=== PATIENT | female | born 1950 | race Caucasian/White ===

== ENCOUNTER → 2019-09-26 | Outpatient (CLI) | payer MEDICARE ==
--- NOTE | 2019-09-27 08:14 | USB ---
Reason for exam: clinical finding. Physical Findings: Nurse did not find any significant physical abnormalities on exam. US Breast RT Right complete breast ultrasound includes all four quadrants, the retroareolar region and axilla. Finding demonstrates a 0.3 x 0.2 x 0.3cm cystic lesion at 12 o'clock and ductal ectasia at the posterior nipple. These results were verbally communicated with the patient and result sheet given to the patient on 09/26/19. ASSESSMENT: Benign, BI-RAD 2 RECOMMENDATION: Routine screening mammogram of both breasts. Back on schedule. Manage patient on a clinical basis.
== END | disposition home or self-care (01) ==
LOC: RADUSWWP 14:45
PROVIDERS: ATTEND Family Medicine
DX: N63.0 Unspecified lump in unspecified breast (principal)

== ENCOUNTER → 2020-12-05 | Outpatient (CLI) | payer MEDICARE ==
--- NOTE | 2020-12-10 11:56 | MM ---
Reason for exam: screening (asymptomatic). Last mammogram was performed 1 year and 4 months ago. History: Patient is postmenopausal. Physical Findings: A clinical breast exam by your physician is recommended on an annual basis and results should be correlated with mammographic findings. MG 3D Screening Mammo W/Cad Bilateral CC and MLO view(s) were taken. Prior study comparison: September 26, 2019, right breast US breast RT. July 26, 2019, mammogram, performed at [facility]. The breast tissue is heterogeneously dense. This may lower the sensitivity of mammography. No significant changes when compared with prior studies. ASSESSMENT: Benign, BI-RAD 2 RECOMMENDATION: Routine screening mammogram of both breasts in 1 year.
== END | disposition home or self-care (01) ==
LOC: RADMAMWWP 15:58
PROVIDERS: ATTEND Family Medicine
DX: Z12.31 Encounter for screening mammogram for malignant neoplasm of breast (principal)
CPT/HCPCS: 77063; 77067

== ENCOUNTER → 2021-03-18 | Outpatient (CLI) | payer MEDICARE ==
--- NOTE | 2021-03-18 09:03 | BD ---
EXAMINATION TYPE: Axial Bone Density DATE OF EXAM: 03/18/2021 COMPARISON: NONE CLINICAL HISTORY: Postmenopausal female Height: 5 FT 3 1/2 IN Weight: 129 FRAX RISK QUESTIONS: Alcohol (3 or more units per day): NO Family History (Parent hip fracture): NO Glucocorticoids (More than 3mos): NO (Ex: prednisone, prednisolone, methylprednisolone, dexamethasone, and hydrocortisone). History of Fracture in Adulthood: NO Secondary Osteoporosis: 1. Type 1 Diabetes: NO 2. Hyperthyroidism: NO 3. Menopause before 45: NO 4. Malnutrition: NO 5. Chronic liver disease: NO Rheumatoid Arthritis: NO Current Tobacco Use: NO RISK FACTORS HISTORY OF: Surgery to Spine/Hip(right/left)/Wrist (right/left): NO Family History of Osteoporosis: NO Active: YES Diet low in dairy products/other sources of calcium: NO Postmenopausal woman: AGE 50-53 Take estrogen and/or progesterone medications: NONE Lost more than 2 inches in height since high school: NO MEDICATIONS: Thyroid Medications: YES Which medication: SYNTHROID How Lon YEARS Additional Medications: SYNTHROID, PREVA STATIN, ACTONEL TAKEN FOR 11 YEARS , Additional History: LAST BONE DENSITY THREE YEARS AGO [facility] EXAM MEASUREMENTS: Bone mineral densitometry was performed using the [employer] System. Bone mineral density as measured about the Lumbar spine is: ----- L1-L4(G/cm2): 0.985 T Score Values are as follows: ----- L2: -1.5 ----- L3: -1.6 ----- L4: -2.2 ----- L1-L4: -1.6 PREV DONE THREE YEARS [facility] Bone mineral density about the R hip (g/cm2): 0.741 Bone mineral density about the L hip (g/cm2): 0.793 T Score values are as follows: -----R Neck: -2.1 -----L Neck: -1.8 -----R Total: -1.3 -----L Total: -1.0 PREV DONE THREE AGO [facility] IMPRESSION: Osteopenia (T Score between -2.5 and -1). There is slightly increased risk of fracture and the patient may be considered for treatment. Re-Screen 2-5 years. NOTE: T-SCORE=SD OF THE YOUNG ADULT MEAN.
== END | disposition home or self-care (01) ==
LOC: RADBDWWP 07:51
PROVIDERS: ATTEND Family Medicine
DX: Z78.0 Asymptomatic menopausal state (principal); M85.80 Other specified disorders of bone density and structure, unspecified site
CPT/HCPCS: 77080

== ENCOUNTER 2022-05-20 07:21 | Day surgery (SDC) | payer MEDICARE ==
[2022-05-18 15:45] VITALS: BMI 22.6
[~2022-05-20 07:21] MED LIST: LACTATED RINGERS 1,000 ML IV SCH; LIDOCAINE 1% (10MG/ML) FOR IV START INTRADERMA PRN
[2022-05-20 08:05] VITALS: TEMP 98.6
[2022-05-20] MEDS ORDERED: LIDOCAINE 2% INJ 20 MG/ML (2 ML VIAL) ONE (08:35)
[2022-05-20] MEDS ORDERED: PROPOFOL 10 MG/ML 20 ML VIAL IV ONE (08:35)
--- NOTE | 2022-05-20 08:52 | P.PCN ---
Date of Procedure: 05/20/22 Procedure(s) Performed: BRIEF HISTORY: Patient is a 71-year-old pleasant white female scheduled for an elective colonoscopy as a part of screening for colon cancer and family history of colon cancer diagnosed in her father at age 88. PROCEDURE PERFORMED: Colonoscopy. PREOPERATIVE DIAGNOSIS: Screening for colon cancer and family history of colon cancer. IV sedation per Anesthesia. PROCEDURE: After informed consent was obtained, the patient, was brought into the endoscopy unit. IV sedation was administered by Anesthesia under continuous monitoring. Digital rectal examination was normal. Initially the Olympus CF-160 flexible video colonoscope was then inserted in the rectum, gradually advanced into the cecum without any difficulty. Careful examination was performed as the scope was gradually being withdrawn. Ileocecal valve and the appendiceal orifice were visualized and appeared normal. Prep was excellent. Mucosa of the cecum, ascending colon, transverse colon, descending colon, sigmoid colon, and rectum appeared normal. Scattered sigmoid diverticulosis. Retroflexion was performed in the rectum and no lesions were seen. The patient tolerated the procedure well. IMPRESSION: Normal-appearing colon from rectum to cecum with no evidence of colorectal neoplasia Scattered sigmoid diverticulosis RECOMMENDATIONS: Findings of this examination were discussed with the patient as well as a family. She was advised to have a repeat colonoscopy in 55 years from now because of the family history of colon cancer..
[2022-05-20 09:13] VITALS: BP 111/65; PULSE 60; RESP 16
== END 2022-05-20 09:57 | disposition home or self-care (01) ==
LOC: ORWHC2ENDO 07:21
PROVIDERS: ATTEND Internal Medicine Gastroenterology
DX: Z12.11 Encounter for screening for malignant neoplasm of colon (principal); K57.30 Diverticulosis of large intestine without perforation or abscess without bleeding; Z80.0 Family history of malignant neoplasm of digestive organs; E78.5 Hyperlipidemia, unspecified; E07.9 Disorder of thyroid, unspecified; Z79.890 Hormone replacement therapy; Z79.899 Other long term (current) drug therapy; Z88.0 Allergy status to penicillin
CPT/HCPCS: J2704; J2001; G0105

== ENCOUNTER → 2023-01-25 | Outpatient (CLI) | payer MEDICARE ==
--- NOTE | 2023-01-26 08:15 | MM ---
Reason for Exam: Screening (asymptomatic). Last mammogram was performed 1 year(s) and 1 month(s) ago. Patient History: Menarche at age 10. First Full-Term at age 27. Postmenopausal. Risk Values: Josselin 5 year model risk: 2.0%. NCI Lifetime model risk: 4.5%. Prior Study Comparison: 07/26/2019 Screening Mammogram, [facility]. 12/05/2020 Bilateral Screening Mammogram, [facility]. 01/06/2022 Bilateral Screening Mammogram, [facility]. Tissue Density: The breast tissue is heterogeneously dense. This may lower the sensitivity of mammography. Findings: Analyzed By CAD. There is no suspicious group of microcalcifications or new suspicious mass in either breast. Stable benign calcifications within both breasts. Overall Assessment: Benign, BI-RAD 2 Management: Screening Mammogram of both breasts in 1 year. A clinical breast exam by your physician is recommended on an annual basis and results should be correlated with mammographic findings. Electronically signed and approved by: Noé Azar D.O.
== END | disposition home or self-care (01) ==
LOC: RADMAMWWP 11:50
PROVIDERS: ATTEND Family Medicine
DX: Z12.31 Encounter for screening mammogram for malignant neoplasm of breast (principal); Z78.0 Asymptomatic menopausal state
CPT/HCPCS: 77063; 77067

== ENCOUNTER → 2023-03-24 | Outpatient (CLI) | payer MEDICARE ==
--- NOTE | 2023-03-24 18:59 | BD ---
EXAMINATION TYPE: Axial Bone Density DATE OF EXAM: 03/24/2023 CLINICAL HISTORY: 72 years old Female. ICD-10 CODE: Z78.0 Asymptomatic menopausal state Height: 5 ft 2 in Weight: 130 FRAX RISK QUESTIONS: Alcohol (3 or more units per day): no Family History (Parent hip fracture): no Glucocorticoids (More than 3mos): no (Ex: prednisone, prednisolone, methylprednisolone, dexamethasone, and hydrocortisone). History of Fracture in Adulthood: no Secondary Osteoporosis: 1. Type 1 Diabetes: no 2. Hyperthyroidism: no 3. Menopause before 45: no 4. Malnutrition: no 5. Chronic liver disease: no Rheumatoid Arthritis: no Current Tobacco Use: no RISK FACTORS HISTORY OF: Surgery to Spine/Hip(right/left)/Wrist (right/left): no Family History of Osteoporosis: no Active: yes Diet low in dairy products/other sources of calcium: no Postmenopausal woman: yes Take estrogen and/or progesterone medications: yes Lost more than 2 inches in height since high school: yes Frequent falls: no Poor Health: good Hyperparathyroidism: no Adrenal Insufficiency: no MEDICATIONS: Thyroid Medications: yes Which medication: synthroid How Lon-4 years Additional Medications: synthroid,prevastatan, fosamax, Additional History: been on fosamax since 2009 EXAM MEASUREMENTS: Bone mineral densitometry was performed using the [employer] System. Bone mineral density as measured about the Lumbar spine is: ----- L1-L4(G/cm2): 1.008 T Score Values are as follows: ----- L1: -1.1 ----- L2: -1.4 ----- L3: -1.7 ----- L4: -1.5 ----- L1-L4: -1.4 Z Score Values are as follows: ----- L1: 0.8 ----- L2: 0.5 ----- L3: 0.2 ----- L4: 0.4 ----- L1-L4: 0.5 Bone mineral density has: increased 2.3 % since study of: 2020 Bone mineral density about the R hip (g/cm2): 0.733 Bone mineral density about the L hip (g/cm2): 0.794 T Score values are as follows: -----R Neck: -2.2 -----L Neck: -1.8 -----R Total: -1.3 -----L Total: -0.8 Z Score values are as follows: -----R Neck: -0.2 -----L Neck: 0.3 -----R Total: 0.6 -----L Total: 1.0 Bone mineral density has: increased 1.4 % since study of: 2020 FRAX%s: The graph provided illustrates a 14.1% chance for a major osteoporotic fx and a 3.9% chance f or the hips probability for fx in 10 years time. IMPRESSION: Osteopenia (T Score between -2.5 and -1). There is slightly increased risk of fracture and the patient may be considered for treatment. Re-Screen 2-5 years. NOTE: T-SCORE=SD OF THE YOUNG ADULT MEAN.
== END | disposition home or self-care (01) ==
LOC: RADBDWWP 14:17
PROVIDERS: ATTEND Family Medicine
DX: M85.89 Other specified disorders of bone density and structure, multiple sites (principal); Z78.0 Asymptomatic menopausal state
CPT/HCPCS: 77080

== ENCOUNTER → 2024-03-27 | Outpatient (CLI) | payer MEDICARE ==
--- NOTE | 2024-03-28 16:15 | MM ---
Reason for Exam: Screening (asymptomatic). Last mammogram was performed 1 year(s) and 2 month(s) ago. Patient History: Menarche at age 10. First Full-Term at age 27. Postmenopausal. Risk Values: Josselin 5 year model risk: 2.0%. NCI Lifetime model risk: 4.2%. Prior Study Comparison: 12/05/2020 Bilateral Screening Mammogram, [facility]. 01/06/2022 Bilateral Screening Mammogram, [facility]. 01/25/2023 Bilateral MG 3D screening mammo w/cad, [facility]. Tissue Density: The breasts are heterogeneously dense, which may obscure small masses. Findings: Analyzed By CAD. There is no suspicious group of microcalcifications or new suspicious mass in either breast. Overall Assessment: Negative, BI-RAD 1 Management: Screening Mammogram of both breasts in 1 year. . Patient should continue monthly self-breast exams. A clinical breast exam by your physician is recommended on an annual basis. This exam should not preclude additional follow-up of suspicious palpable abnormalities. Note on Josselin scores and lifetime risk: 1. A Josselin score greater than 3% is considered moderate risk. If this is the case, consider specialist referral to assess eligibility for a risk reducing agent. 2. If overall lifetime risk for the development of breast cancer is 20% or higher, the patient may qualify for future screening with alternating mammogram and breast MRI. Electronically signed and approved by: James Champion M.D. Radiologist
== END | disposition home or self-care (01) ==
LOC: RADMAMWWP 12:44
PROVIDERS: ATTEND Family Medicine
DX: Z12.31 Encounter for screening mammogram for malignant neoplasm of breast (principal); Z78.0 Asymptomatic menopausal state
CPT/HCPCS: 77063; 77067

== ENCOUNTER 2024-07-10 09:23 | Day surgery (SDC) | payer MEDICARE ==
[~2024-07-10 09:23] MED LIST changes: -LACTATED RINGERS 1,000 ML IV SCH; -LIDOCAINE 1% (10MG/ML) FOR IV START INTRADERMA PRN; +ONDANSETRON 4 MG/2 ML VIAL IVP ONE
[2024-07-10] MEDS: HEPARIN SODIUM,PORCINE 5,000 UNIT/ML 1 ML VIAL SQ PRN (10:12)
[2024-07-10] MEDS: ACETAMINOPHEN TAB 500 MG TAB PO PRN (10:12)
[2024-07-10] MEDS: ONDANSETRON 4 MG/2 ML VIAL IVP ONE (10:20)
[2024-07-10] MEDS: DEXAMETHASONE SOD PHOSPHATE 4 MG/ML 1 ML VIAL IVP STA (10:22)
--- NOTE | 2024-07-10 10:22 | P.GSHP ---
History of Present Illness H&P Date: 07/10/24 Chief Complaint: Right inguinal hernia 73-year-old female last seen in January. Patient with enlarging right inguinal hernia. Sore at times. No nausea or vomiting. No change in bowel habits. Past Medical History Past Medical History: Deep Vein Thrombosis (DVT), Hearing Disorder / Deafness, Hyperlipidemia, Thyroid Disorder Additional Past Medical History / Comment(s): HX OF DVT WITH . GANGLION CYST RIGHT INDEX FINGER. Hard of hearing. Low bone density. Varicose veins. hypothyroidism History of Any Multi-Drug Resistant Organisms: None Reported Past Surgical History: Tonsillectomy Additional Past Surgical History / Comment(s): COLONOSCOPY, ASPIRATION BREAST CYSTS (NO ANESTHESIA). Past Anesthesia/Blood Transfusion Reactions: No Reported Reaction Smoking Status: Never smoker - Past Family History Father Family Medical History: Cancer Additional Family Medical History / Comment(s): COLON CANCER. Medications and Allergies Home Medications Medication Instructions Recorded Confirmed Type Calcium Carbonate [Calcium] 600 mg PO DAILY 01/16/19 07/10/24 History Levothyroxine Sodium [Synthroid] 50 mcg PO HS 01/16/19 07/10/24 History Multivit with Calcium,Iron,Min 1 each PO DAILY 01/16/19 07/10/24 History [Women's Multivitamin] [place]-3 Fatty Acids/Fish Oil [Fish 1 each PO DAILY 01/16/19 07/10/24 History Oil 1,000 mg Softgel] Pravastatin Sodium [Pravachol] 40 mg PO HS 01/16/19 07/10/24 History Sf 5,000plus 1.1% Dental Cream 1 dose PO DAILY 01/16/19 07/10/24 History Ubidecarenone [Co Q-10] 200 mg PO DAILY 01/16/19 07/10/24 History Alendronate Sodium 70 mg PO TH 05/18/22 07/10/24 History Allergies Allergy/AdvReac Type Severity Reaction Status Date / Time Penicillins Allergy Unknown Rash/Hives Verified 07/10/24 09:48 Surgical - Exam Vital Signs Temp Pulse Resp BP Pulse Ox 97.7 F 62 18 140/64 97 07/10/24 09:54 07/10/24 09:54 07/10/24 09:54 07/10/24 09:54 07/10/24 09:54 Physical exam: General: Well-developed, well-nourished HEENT: Normocephalic, sclerae nonicteric Abdomen: Nontender, nondistended, reducible right inguinal hernia Extremities: No edema Neuro: Alert and oriented Assessment and Plan (1) Right inguinal hernia Narrative/Plan: 73-year-old female with symptomatic right inguinal hernia. Will proceed with laparoscopic da Evy assisted repair right inguinal hernia with mesh, possible open, possible bilateral. Risks of bleeding, infection, recurrence, bladder and bowel injury, numbness, nerve injury, conversion to an open procedure were discussed with the patient. The patient understands and wishes to proceed. Current Visit: Yes Status: Acute Code(s): K40.90 - UNIL INGUINAL HERNIA, W/O OBST OR GANGR, NOT SPCF RECUR OMED Code(s): 968749652
[2024-07-10] MEDS: IV FLUID CONTINUATION 1,000 ML IV ONE (10:24)
[2024-07-10] MEDS ORDERED: SUGAMMADEX SODIUM 200 MG/2 ML SDV IV ONE (10:40)
[2024-07-10] MEDS ORDERED: HYDROmorphone (PF) 1 MG/ML ONE (10:40)
[2024-07-10] MEDS ORDERED: LIDOCAINE 1% INJ 10MG/ML (20 ML MDV) ONE (10:40)
[2024-07-10] MEDS ORDERED: MIDAZOLAM 2 MG/2 ML VIAL ONE (10:40)
[2024-07-10] MEDS ORDERED: PHENYLEPHRINE 10 MG/ML VIAL ONE (10:40)
[2024-07-10] MEDS ORDERED: ROCURONIUM 10 MG/ML (5 ML VIAL) IV ONE (10:40)
[2024-07-10] MEDS ORDERED: ePHEDrine 50 MG/ML 1 ML VIAL ONE (10:40)
[2024-07-10] MEDS ORDERED: fentaNYL (PF) 50 MCG/ML 2 ML AMP ONE (10:40)
[2024-07-10] MEDS ORDERED: SUCCINYLCHOLINE CHLORIDE 200 MG/10 ML VIAL IV ONE (10:40)
[2024-07-10] MEDS ORDERED: PROPOFOL 10 MG/ML 20 ML VIAL IV ONE (10:40)
[2024-07-10] MEDS ORDERED: GLYCOPYRROLATE 0.2 MG/ML 2 ML VIAL ONE (10:40)
[2024-07-10] MEDS: BUPIVACAINE (PF) 0.25% 30 ML VIAL SQ ONE (11:04)
[2024-07-10] MEDS: LACTATED RINGERS 1,000 ML IV ONE (11:46)
[2024-07-10] MEDS ORDERED: traMADol 50 MG TAB PO STA (12:44)
--- NOTE | 2024-07-10 12:48 | P.OP ---
Date of Procedure: 07/10/24 Procedure(s) Performed: PREOPERATIVE DIAGNOSIS: Right inguinal hernia POSTOPERATIVE DIAGNOSIS: Bilateral inguinal hernia PROCEDURE: Laparoscopic da Evy assisted repair bilateral inguinal hernia SURGEON: Dr. Lutz ANESTHESIA: General OPERATIVE PROCEDURE DETAILS: Patient was placed in the operating table in the supine position. The patient was placed under general anesthesia. The abdomen was prepped and draped in usual sterile fashion. A small curvilinear supraumbilical incision was made. The fascia was retracted anteriorly with Yuliya forceps. The Veress needle was inserted. The saline drop test was normal. Insufflation took place to 15 mmHg. An 8 mm trocar was placed into the peritoneal cavity. 2 additional 8 mm trochars were placed in the right upper quadrant and left upper quadrant under visualization. The robotic arms were then brought in and docked into place. The fenestrated bipolar was used in the left arm and the laparoscopic nohemi was utilized in the right arm. A 30 8 mm scope was used in the up position. The peritoneal cavity was inspected. The patient had a moderate sized right indirect inguinal hernia and a smaller sized left direct inguinal hernia. There was also the start of a small indirect hernia on the left-hand side. A incision was created on the peritoneum across the lower abdomen superior to the bladder. The preperitoneal dissection took place bilaterally at that time. The indirect hernia on the right-hand side was reduced using blunt dissection. Aayush's ligament and the pubic symphysis were well-visualized. Dissection on the left-hand side of the direct hernia sac then took place without difficulty as well. Once we had full dissection in both sacs fully reduced 2 separate 15 x 10 mm Progrip mesh were placed within the abdomen crossing one another in the midline. These were then sutured to the Aayush's ligament across the pubic symphysis to the opposite side using a running 30 absorbable V lock suture. The same stitch was then brought to the midline and the mesh was sutured to the abdominal wall in the midline superiorly. This covered all hernia spaces nicely. The peritoneal defect was then closed bilaterally using a absorbable 2-0 VLok suture. The hernia sacs were incorporated into the peritoneal closure to help prevent future recurrence. The pneumoperitoneum was then evacuated. The skin of all 3 sites was closed using a 4-0 Monocryl stitch. Skin glue was then applied. TYPE OF MESH USED: Progrip 15 x 10 LOCATION OF MESH: Preperitoneal/sub-lay FIXATION: Absorbable 30V lock PREOPERATIVE DISCUSSION ON SMOKING CESSASTION: Yes PREOPERATIVE DISCUSSION ON MORBID OBESITY: Yes PREOPERATIVE DISCUSSION ON APPROPRIATE USE OF NARCOTIC USE: Yes PREOPERATIVE EDUCATION: Multi Modal, Smoking Cessation and Weight Loss with BMI over 35. DISPOSITION: Stable to recovery room
[2024-07-10 12:54] VITALS: TEMP 97.3
[2024-07-10] MEDS: HYDROmorphone 0.5 MG/0.5 ML SYRINGE IVP PRN (13:07)
[2024-07-10 13:53] VITALS: RESP 16
[2024-07-10] MEDS: LACTATED RINGERS 1,000 ML IV SCH (15:39)
[2024-07-10] MEDS: droPERidol 5 MG/2 ML VIAL IVP ONE (15:40)
[2024-07-10] MEDS ORDERED: IBUPROFEN 600 MG TAB PO SCH (15:45)
[2024-07-10 16:33] VITALS: BP 108/64; PULSE 79
[2024-07-10] MEDS ORDERED: ACETAMINOPHEN TAB 325 MG TAB PO SCH (18:00)
== END 2024-07-10 17:34 | disposition home or self-care (01) ==
LOC: OR 09:23
PROVIDERS: ATTEND Surgery
DX: K40.20 Bilateral inguinal hernia, without obstruction or gangrene, not specified as recurrent (principal); E78.5 Hyperlipidemia, unspecified; E03.9 Hypothyroidism, unspecified; Z79.890 Hormone replacement therapy; Z80.0 Family history of malignant neoplasm of digestive organs; Z86.718 Personal history of other venous thrombosis and embolism; Z88.0 Allergy status to penicillin; Z90.89 Acquired absence of other organs

== ENCOUNTER → 2025-05-01 | Outpatient (CLI) | payer MEDICARE ==
--- NOTE | 2025-05-01 15:38 | BD ---
EXAMINATION TYPE: Axial Bone Density DATE OF EXAM: 05/01/2025 CLINICAL HISTORY: 74 years old Female. ICD-10 CODE: Z78.0 ASYMPTOMATIC [place] , Additional Histo ry: Height: 63 Weight: 130 FRAX RISK QUESTIONS: Family History (Parent hip fracture): no History of Fracture in Adulthood: no Secondary Osteoporosis: no RISK FACTORS HISTORY OF: Surgery to Spine/Hip(right/left)/Wrist (right/left): no MEDICATIONS: Thyroid Medications: yes Which medication: Synthroid How Lon+ years Osteoporosis Medications: yes Which medication: Fosamax How Lon+ years EXAM MEASUREMENTS: Bone mineral densitometry was performed using the [employer] System. Bone mineral density as measured about the Lumbar spine is: ----- L1-L4(G/cm2): 1.050 T Score Values are as follows: ----- L1: -0.9 ----- L2: -1.0 ----- L3: -1.4 ----- L4: -1.2 ----- L1-L4: -1.1 Z Score Values are as follows: ----- L1: 1.1 ----- L2: 1.0 ----- L3: 0.6 ----- L4: 0.8 ----- L1-L4: 0.9 Bone mineral density has: Increased 4.2% since study of: 03/24/2023 Bone mineral density about the R hip (g/cm2): 0.854 Bone mineral density about the L hip (g/cm2): 0.929 T Score values are as follows: -----R Neck: -2.4 -----L Neck: -1.9 -----R Total: -1.2 -----L Total: -0.6 Z Score values are as follows: -----R Neck: -0.3 -----L Neck: 0.2 -----R Total: 0.7 -----L Total: 1.3 Bone mineral density has: Increased 1.9% since study of: 03/24/2023 FRAX%s: The graph provided illustrates a 16.3% chance for a major osteoporotic fx and a 5.4% chance f or the hips probability for fx in 10 years time. IMPRESSION: Osteopenia (T Score between -2.5 and -1) remains present. There is slightly increased risk of fracture and the patient may be considered for treatment. Re-Screen 2-5 years. NOTE: T-SCORE=SD OF THE YOUNG ADULT MEAN. [facility], Workstation: 3, 05/01/2025 3:36 PM
--- NOTE | 2025-05-01 16:35 | MM ---
Reason for Exam: Screening (asymptomatic). Last mammogram was performed 1 year(s) and 1 month(s) ago. Patient History: Menarche at age 10. First Full-Term at age 27. Postmenopausal. Risk Values: Josselin 5 year model risk: 2.0%. NCI Lifetime model risk: 4.0%. Prior Study Comparison: 01/06/2022 Bilateral Screening Mammogram, [facility]. 01/25/2023 Bilateral MG 3D screening mammo w/cad, [facility]. 03/27/2024 Bilateral MG 3D screening mammo w/cad, [facility]. Tissue Density: The breasts are heterogeneously dense, which may obscure small masses. Findings: Analyzed By CAD. There is no suspicious group of microcalcifications or new suspicious mass in either breast. Overall Assessment: Negative, BI-RAD 1 Management: Screening Mammogram of both breasts in 1 year. . Patient should continue monthly self-breast exams. A clinical breast exam by your physician is recommended on an annual basis. This exam should not preclude additional follow-up of suspicious palpable abnormalities. Note on Josselin scores and lifetime risk: 1. A Josselin score greater than 3% is considered moderate risk. If this is the case, consider specialist referral to assess eligibility for a risk reducing agent. 2. If overall lifetime risk for the development of breast cancer is 20% or higher, the patient may qualify for future screening with alternating mammogram and breast MRI. [facility], , 05/01/2025 3:40 PM. Electronically signed and approved by: Francois Paulson M.D.
== END | disposition home or self-care (01) ==
LOC: RADMAMWWP 14:41
PROVIDERS: ATTEND Family Medicine
DX: Z12.31 Encounter for screening mammogram for malignant neoplasm of breast (principal); R92.333 Mammographic heterogeneous density, bilateral breasts; M85.89 Other specified disorders of bone density and structure, multiple sites; Z78.0 Asymptomatic menopausal state
CPT/HCPCS: 77063; 77067; 77080